=== PATIENT | female | born 1985 ===

== ENCOUNTER → 2018-07-16 | Outpatient (CLI) | payer OTHER ==
[2018-07-16 17:20] LABS: BASOPHILS ABSOLUTE AUTO 0.04 K/mm3 (0.00-0.23); BASOPHILS PERCENT AUTO 1 % (0-2); EOSINOPHILS ABSOLUTE AUTO 0.06 K/mm3 (0.00-0.68); EOSINOPHILS PERCENT AUTO 1 % (0-6); Hematocrit 28.7 % (33.0-51.0); Hemoglobin 8.9 g/dL (11.5-16.0); IMMATURE GRAN ABSOLUTE AUTO 0.02 K/mm3 (0.00-0.10); IMMATURE GRAN PERCENT AUTO 0 % (0-1); LYMPHOCYTES ABSOLUTE AUTO 1.84 K/mm3 (0.84-5.20); LYMPHOCYTES PERCENT AUTO 28 % (21-46); MONOCYTES ABSOLUTE AUTO 0.42 K/mm3 (0.16-1.47); MONOCYTES PERCENT AUTO 6 % (4-13); Mean Corpuscular HGB 23.8 pg (26.0-34.0); Mean Corpuscular Volume 77 fL (80-100); Mean Platelet Volume 11.7 fL (9.1-12.4); NEUTROPHILS ABSOLUTE AUTO 4.23 K/mm3 (1.96-9.15); NEUTROPHILS PERCENT AUTO 64 % (41-73); Platelet Count 284 K/mm3 (150-400); RDW Coefficient Variation 15.9 % (11.7-14.2); RDW Standard Deviation 44.5 fL (35.1-46.3); Red Blood Cell Count 3.74 M/mm3 (3.80-5.20); White Blood Cell Count 6.61 K/mm3 (4.00-11.30)
[2018-07-16 17:41] LABS: Alanine Aminotransfer (ALT/SGP 11 U/L (12-78); Albumin, Blood 3.5 g/dL (3.4-5.0); Albumin/Globulin Ratio 0.8 (0.8-1.8); Alk Phos 79 U/L (40-126); Anion Gap 7 mmol/L (6-16); Aspartate Aminotrans (AST/SGOT 12 U/L (12-37); Bilirubin, Total 0.2 mg/dL (0.1-1.0); Blood Urea Nitrogen 8 mg/dL (8-24); Bun/Creatinine Ratio 13.3 (12.0-20.0); CO2, Blood 25 mmol/L (21-32); Calcium, Blood 8.9 mg/dL (8.5-10.1); Chloride, Blood 107 mmol/L (98-108); Globulin, Blood 4.4 g/dL (2.2-4.0); Glomerular Filtration Rate >60 (60-); Glucose, Blood 91 mg/dL (70-99); Potassium, Blood 4.9 mmol/L (3.5-5.5); Sodium, Blood 139 mmol/L (136-145); Thyroid Stimulating Hormone 2.163 uIU/mL (0.360-4.800); Total Protein, Blood 7.9 g/dL (6.4-8.2)
[2018-07-16 21:12] LABS: Percent Saturation 3.8 % (15.0-50.0)
== END | disposition home or self-care (01) ==
LOC: LAB EV 17:17 → LAB SHORT 17:17
PROVIDERS: Physician Assistant Medical
DX: D50.9 Iron deficiency anemia, unspecified (principal); R60.0 Localized edema
CPT/HCPCS: 80053; 82728; 83540; 83550; 83880; 84443; 85025; 85379

== ENCOUNTER 2020-12-02 13:18 | Day surgery (SDC) | payer OTHER ==
[~2020-12-02] VITALS: Ht 165.1 cm; Wt 82.0 kg
[~2020-12-02 13:18] MED LIST: RIZATRIPTAN10 MG
--- NOTE | 2020-12-02 15:58 | NUR ---
12/02/20 1558 Nicole Beth PATIENT HAS NO C/O PAIN OR NAUSEA. TOLERATING PO FLUIDS. C/O FEELING SLEEPY. VSS. REQUESTED PHONE FROM [facility]. WILL CONTINUE TO MONITOR.
== END 2020-12-02 16:30 | disposition home or self-care (01) ==
LOC: ORSCSDS 13:18
PROVIDERS: Obstetrics & Gynecology
PROC: 0UDB8ZX Extraction of Endometrium, Via Natural or Artificial Opening Endoscopic, Diagnostic (ICD-10-PCS; principal; 2020-12-02 13:00)
DX: N95.9 Unspecified menopausal and perimenopausal disorder (principal); N92.1 Excessive and frequent menstruation with irregular cycle
CPT/HCPCS: 88305; J1100; J1885; J2250; J2405; J2704; J3010; J7120

== ENCOUNTER 2021-08-12 07:20 | Day surgery (SDC) | payer OTHER ==
[~2021-08-12] VITALS: Ht 165.1 cm; Wt 81.1 kg
== END 2021-08-12 09:20 | disposition home or self-care (01) ==
LOC: ORSCSDS 07:20
PROVIDERS: Orthopaedic Surgery
PROC: 01N50ZZ Release Median Nerve, Open Approach (ICD-10-PCS; principal; 2021-08-12 08:30)
DX: G56.01 Carpal tunnel syndrome, right upper limb (principal); E66.9 Obesity, unspecified; Z68.30 Body mass index [BMI] 30.0-30.9, adult; Z79.899 Other long term (current) drug therapy
CPT/HCPCS: A9270; J0171; J0690; J1100; J2250; J2405; J2704; J3010

== ENCOUNTER 2022-05-19 08:37 | Day surgery (SDC) | payer OTHER ==
[~2022-05-19] VITALS: Ht 165.1 cm; Wt 77.5 kg
[2022-05-19] MEDS ORDERED: QUDEXY (09:17)
--- NOTE | 2022-05-19 10:18 | NUR ---
05/19/22 1018 Gonzalo Ny ROPIVACAINE 0.5% 1:200,000 MIXED W/ LIDOACINE 2% 1:100,000 1:1 FOR INJECTION AT OPSITE BY DR ANSARI. 10 MLS INJECTED.
== END 2022-05-19 10:58 | disposition home or self-care (01) ==
LOC: ORSCSDS 08:37
PROVIDERS: Orthopaedic Surgery
PROC: 01N50ZZ Release Median Nerve, Open Approach (ICD-10-PCS; principal; 2022-05-19 10:15)
DX: G56.02 Carpal tunnel syndrome, left upper limb (principal)
CPT/HCPCS: J0690; J2250; J2704; J2795; J3010